=== PATIENT | male | born 1940 | race Caucasian/White ===

== ENCOUNTER → 2016-12-14 | Outpatient (CLI) | payer OTHER, MEDICARE ==
[~2016-12-14] MED LIST: CRD4 PO; FENO130C2 PO; LAXATIVE; METO50TA7 PO; PANT40TA PO; SIMV10TA2; STOOL SOFTNER
[2016-12-14 14:36] LABS: COMPLETE YES; EOS % 3.3 %; HEMATOCRIT 43.9 % (42-52); IG% 0.2 %; LYMPH % 27.3 %; LYMPH ABS # 1.48 K/uL (1.2-3.4); MEAN CELL VOLUME 87.6 fL (80-100); MEAN CORPUSCULAR HEMOGLOBIN 29.3 pg (25-34); MEAN CORPUSCULAR HGB CONC 33.5 g/dl (32-36); MEAN PLATELET VOLUME 12.9 fL (7.4-10.4); MONO % 11.4 %; NEUT % 57.8 %; PLATELET COUNT 165 K/uL (130-400); RED BLOOD COUNT 5.01 M/uL (4.7-6.1); WHITE BLOOD COUNT 5.42 K/uL (4.8-10.8)
[2016-12-14 14:47] LABS: ALT/SGPT 23 U/L (12-78); BLOOD UREA NITROGEN 24 mg/dl (7-18); BUN/CREATININE RATIO 20.3 (10-20); CALCIUM 9.4 mg/dl (8.5-10.1); CARBON DIOXIDE 28 mmol/L (21-32); CHLORIDE 106 mmol/L (98-107); CHOLESTEROL 129 mg/dl (0-200); GLUCOSE 96 mg/dl (70-99); POTASSIUM 4.7 mmol/L (3.5-5.1); SODIUM 142 mmol/L (136-145)
[2016-12-14 14:52] LABS: ALB/GLOB RATIO 1.2 (0.9-2); ALKALINE PHOSPHATASE 41 U/L (45-117); AST/SGOT 18 U/L (15-37); CHOLESTEROL/HDL RATIO 4.3; HDL CHOLESTEROL 30 mg/dl; LDL CHOLESTEROL CALCULATED 60 mg/dl; TRIGLYCERIDES 193 mg/dl (0-150); VERY LOW DENSITY LIPOPROT CALC 39 mg/dl
== END | disposition home or self-care (01) ==
LOC: C.LABSPEC 13:59
PROVIDERS: ATTEND Family Medicine
DX: I10 Essential (primary) hypertension (principal); K21.9 Gastro-esophageal reflux disease without esophagitis; E78.2 Mixed hyperlipidemia

== ENCOUNTER → 2017-11-28 | Outpatient (CLI) | payer OTHER, MEDICARE ==
[2017-11-28 20:04] LABS: INFLUENZA B PCR Neg for Influ B (NEG)
[2017-11-28 20:12] LABS: INFLUENZA A PCR POS for Influ A (NEG)
== END | disposition home or self-care (01) ==
LOC: C.LABSPEC 17:55
PROVIDERS: ATTEND Family Medicine
DX: R05 Cough (principal); R50.9 Fever, unspecified

== ENCOUNTER → 2017-12-23 | Outpatient (CLI) | payer OTHER, MEDICARE ==
[~2017-12-23] MED LIST changes: -METO50TA7 PO; +METO50TA8 PO
[2017-12-23 18:23] LABS: BASO % 0.2 %; BASO ABS # 0.01 K/uL (0-0.2); EOS % 2.8 %; EOS ABS # 0.17 K/uL (0-0.5); HEMATOCRIT 41.6 % (42-52); LYMPH % 27.7 %; LYMPH ABS # 1.68 K/uL (1.2-3.4); MEAN CELL VOLUME 88.3 fL (80-100); MEAN CORPUSCULAR HEMOGLOBIN 29.7 pg (25-34); MEAN CORPUSCULAR HGB CONC 33.7 g/dl (32-36); MEAN PLATELET VOLUME 12.3 fL (7.4-10.4); MONO % 11.2 %; MONO ABS # 0.68 K/uL (0.11-0.59); NEUT % 58.1 %; NEUT ABS # 3.53 K/uL (1.4-6.5); PLATELET COUNT 155 K/uL (130-400); RED CELL DISTRIBUTION WIDTH CV 13.7 % (11.5-14.5); RED CELL DISTRIBUTION WIDTH SD 44.5 fL (36.4-46.3); WHITE BLOOD COUNT 6.07 K/uL (4.8-10.8)
[2017-12-23 18:34] LABS: ALBUMIN 4.5 gm/dl (3.4-5.0); ALT/SGPT 27 U/L (12-78); AST/SGOT 19 U/L (15-37); BLOOD UREA NITROGEN 32 mg/dl (7-18); CALCIUM 9.4 mg/dl (8.5-10.1); CARBON DIOXIDE 28 mmol/L (21-32); CHOLESTEROL 121 mg/dl (0-200); CREATININE 1.35 mg/dl (0.60-1.40); GLUCOSE 87 mg/dl (70-99); SODIUM 137 mmol/L (136-145)
[2017-12-23 18:36] LABS: ALKALINE PHOSPHATASE 35 U/L (45-117); LDL CHOLESTEROL CALCULATED 55 mg/dl; TOTAL PROTEIN 8.2 gm/dl (6.4-8.2)
== END | disposition home or self-care (01) ==
LOC: C.LABSPEC 17:45
PROVIDERS: ATTEND Family Medicine
DX: I10 Essential (primary) hypertension (principal); E78.2 Mixed hyperlipidemia

== ENCOUNTER → 2018-06-30 | Outpatient (CLI) | payer OTHER, MEDICARE ==
[2018-06-30 18:20] LABS: BASO % 0.2 %; BASO ABS # 0.01 K/uL (0-0.2); EOS % 1.8 %; EOS ABS # 0.11 K/uL (0-0.5); HEMATOCRIT 44.2 % (42-52); HEMOGLOBIN 14.3 g/dL (14.0-18.0); IG# 0.01 K/uL (0.00-0.02); LYMPH % 28.3 %; LYMPH ABS # 1.76 K/uL (1.2-3.4); MEAN CELL VOLUME 87.2 fL (80-100); MEAN CORPUSCULAR HEMOGLOBIN 28.2 pg (25-34); MEAN CORPUSCULAR HGB CONC 32.4 g/dl (32-36); MONO % 10.4 %; MONO ABS # 0.65 K/uL (0.11-0.59); NEUT % 59.1 %; NEUT ABS # 3.69 K/uL (1.4-6.5); PLATELET COUNT 180 K/uL (130-400); RED CELL DISTRIBUTION WIDTH CV 13.8 % (11.5-14.5); RED CELL DISTRIBUTION WIDTH SD 43.3 fL (36.4-46.3); WHITE BLOOD COUNT 6.23 K/uL (4.8-10.8)
[2018-06-30 18:46] LABS: ALBUMIN 4.3 gm/dl (3.4-5.0); ALKALINE PHOSPHATASE 43 U/L (45-117); ALT/SGPT 25 U/L (12-78); AST/SGOT 20 U/L (15-37); BLOOD UREA NITROGEN 25 mg/dl (7-18); CALCIUM 8.9 mg/dl (8.5-10.1); CARBON DIOXIDE 25 mmol/L (21-32); CHOLESTEROL 122 mg/dl (0-200); CREATININE 1.19 mg/dl (0.60-1.40); GLUCOSE 98 mg/dl (70-99); LDL CHOLESTEROL CALCULATED 41 mg/dl; POTASSIUM 4.6 mmol/L (3.5-5.1); SODIUM 139 mmol/L (136-145); TOTAL PROTEIN 8.1 gm/dl (6.4-8.2)
== END | disposition home or self-care (01) ==
LOC: C.LABSPEC 17:45
PROVIDERS: ATTEND Family Medicine
DX: I10 Essential (primary) hypertension (principal); E78.2 Mixed hyperlipidemia

== ENCOUNTER 2019-02-03 07:21 | Inpatient (IN) ==
--- NOTE | 2019-01-22 07:39 | Anesthesiology Consultation ---
Date of Service January 22, 2019 Assessment & Plan (1) Encounter for pre-operative examination: Chart Review Chart Review: Acceptable Risk for Surgery and Patient NOT seen in Pre Admission Testing Consults Requested none History Surgery Operation Date: 02/03/19 13:05 Proposed Procedures p Transurethral Resection Prostate - Adi Hester MD Height/Weight Height: 5 ft 10 in Weight: 88.4 kg Allergies Allergy/AdvReac Type Severity Reaction Status Date / Time No Known Allergies Allergy Unknown Verified 01/21/19 12:14 Medications Home Medications Medication Instructions Recorded Confirmed Last Taken buspirone 5 mg PO BID 11/17/18 01/21/19 12/16/18 citalopram [Celexa] 10 mg PO QAM 11/17/18 01/21/19 12/16/18 fenofibrate 160 mg PO QAM 11/17/18 01/21/19 12/16/18 finasteride [Proscar] 5 mg PO QPM 11/17/18 01/21/19 12/15/18 metoprolol tartrate 50 mg PO BID 11/17/18 01/21/19 12/16/18 omeprazole 40 mg PO QAM 11/17/18 01/21/19 12/16/18 Past Medical History Medical History Hypertension (Chronic) Anxiety and depression Cardiac murmur FROM CHILDHOOD History of infection 25 YR AGO-DRANK WATER FROM [place], GOT SICK- WAS TOLD HAD HEPATITIS OR MONONUCLEOSIS Stomach burning TAKES OMEPRAZOLE/MYLANTA Past Family History Family History Father Heart attack Past Surgical History Surgical History Hx laparoscopic cholecystectomy 12/11/18 DR. RAZA, [facility] History of appendectomy History of cardiac catheterization 6-8 MON AGO/"DIDN'T FEEL GOOD, CHEST BURNY" - NO STENTS/20% CLOGGED ARTERY History of colonoscopy History of endoscopy History of hernia repair History of surgery on extremity LEFT LEG/PIN IN Social History Smoking Status: Former smoker tobacco type: cigarettes Smoking cigarettes per day: HX OF USE, QUIT IN S, AVERAGE 1PPD Do You Dip or Chew Tobacco: No Hx Alcohol Use: Yes Alcohol type: beer alcohol intake frequency: holidays/special occasions only Hx Substance Use: No substance use type: does not use Exercise / Class Metabolic Activity II 4-5 Yardwork/Stairs/Walk up hill Testing Electrocardiogram Date: 12/16/18 Findings: + NSR @ (85 bpm) possible LAE LVH with repolarization abnormality prolonged QT Echocardiogram Date: 05/10/17 EF: 61% There is isolated basal septal hypertrophy with maximal thickness of 1.5cm. Elevated LVOT velocity of 1.9m/sec with a mean pressure gradient of 9mmHg and a peak pressure gradient of 15mmHg at rest. No change in velocity noted with Valsalva. The mitral valve chordae are redundant with chordal systolic anterior motion. Cardiac Catheterization Date: 03/14/18 Mild, nonobstructive 3 vessel CAD. Laboratory Results Laboratory Tests 12/16/18 01/08/19 01/08/19 14:10 10:40 10:40 WBC 7.58 Hgb 13.4 L Plt Count 185 PT 12.1 H INR 1.2 H APTT 25.7 Sodium 137 Potassium 4.4 Chloride 104 Carbon Dioxide 28 BUN 27 H Creatinine 1.11 Glucose 122 H
[~2019-02-03 07:21] MED LIST changes: -CRD4 PO; -FENO130C2 PO; +GENTAMICIN SULFATE 160 MG in DEXTROSE 5% 100 ML IV ONE; -LAXATIVE; +LR 15ML/HR IV SCH; -METO50TA8 PO; -PANT40TA PO; -SIMV10TA2; -STOOL SOFTNER
[2019-02-03] MEDS ORDERED: LABETALOL HCL IV 5 MG/ML 20ML IV PRN (08:43)
[2019-02-03] MEDS ORDERED: fentaNYL citrate 100 MCG/2 ML VIAL IV PRN (08:43)
[2019-02-03] MEDS ORDERED: ATROPINE SULFATE 0.1 MG/ML 10ML SYR IV PRN (08:43)
[2019-02-03] MEDS ORDERED: ONDANSETRON INJ 2 MG/ML 2 ML VIAL IV PRN ×2 (08:43→13:03)
[2019-02-03] MEDS ORDERED: KETOROLAC 30 MG/ML VIAL IV PRN (08:43)
[2019-02-03] MEDS ORDERED: fentaNYL citrate 100 MCG/2 ML VIAL ONE ×2 (09:01→10:08)
--- NOTE | 2019-02-03 09:27 | Post Operative Brief Note ---
Immediate Post Op Note v1 Date of Surgery February 03, 2019 Pre & Post Diagnosis Operation Date: 02/03/19 08:35 <No data on this case meets the specified criteria> Procedure Operation Date: 02/03/19 08:35 <No data on this case meets the specified criteria> Surgeon Adi Hester MD
--- NOTE | 2019-02-03 09:27 | History & Physical Bridge Note ---
Date of Service February 03, 2019 History & Physical Bridge Note I have examined the patient, reviewed the History & Physical and in the interval since the performance of the History & Physical I have noted the following changes of clinical significance: no changes noted
[2019-02-03] MEDS ORDERED: LIDOCAINE HCL 2% 2 ML VIAL/AMP(20MG/ML) INFIL ONE (10:08)
[2019-02-03] MEDS ORDERED: PROPOFOL IV EMULSION 10 MG/ML 20 ML VIAL IV ONE (10:08)
[2019-02-03] MEDS ORDERED: ONDANSETRON INJ 2 MG/ML 2 ML VIAL ONE (10:08)
--- NOTE | 2019-02-03 11:41 | Post Operative Brief Note ---
Immediate Post Op Note v1 Date of Surgery February 03, 2019 Pre & Post Diagnosis Operation Date: 02/03/19 08:35 Pre-Op Diagnosis: Benign Localized Hyperplasia of Prostate Post-Op Diagnosis: Benign Localized Hyperplasia of Prostate Procedure Operation Date: 02/03/19 08:35 Actual Procedures p Transurethral Resection Prostate(Not Applicable) - Adi Hester MD Surgeon Adi Hester MD Economic Specialist none Estimated Blood Loss 100 Findings Consistent with Post-Op Diagnosis Drains Bruce Catheter ([address] catheter)
--- NOTE | 2019-02-03 12:27 | Anesthesiology Progress Note ---
Date of Service February 03, 2019 Anesthesia Post Procedure Vital Signs Vital Signs: Temp Pulse Pulse Resp BP Pulse Ox 02/03/19 12:15 92 H 18 157/75 H 92 02/03/19 12:05 87 19 157/71 H 94 02/03/19 11:55 85 18 153/74 H 99 02/03/19 11:48 36.4 C L 83 24 140/67 95 02/03/19 07:42 36.6 C 84 18 146/68 H 97 Notes Mental Status: alert / awake / arousable Patient Amnestic to Procedure: Yes Nausea / Vomiting: adequately controlled Pain: adequately controlled Airway Patency, RR, SpO2: stable & adequate BP & HR: stable & adequate Hydration State: stable & adequate Anesthetic Complications: no major complications apparent
[2019-02-03] MEDS ORDERED: MoRPHine SULFATE 4 MG/ML 1 ML CARP\\VIAL IV PRN (13:03)
[2019-02-03] MEDS ORDERED: OXYCODONE HCL IR 5 MG TAB (IMMEDIATE RELEASE) PO PRN (13:03)
[2019-02-03] MEDS ORDERED: ACETAMINOPHEN 325 MG TAB PO PRN (13:03)
[2019-02-03] MEDS ORDERED: BELLADONNA/OPIUM SUPP 60 MG SUPP PR ONE (13:30)
[2019-02-03] MEDS ORDERED: GENTAMICIN CONSULT ACTIVE PRN (13:35)
[2019-02-03] MEDS: SODIUM CHLORIDE 0.45 % 1,000 ML IV SCH (14:01)
[2019-02-03] MEDS: FENOFIBRATE~ORDER AWAITING ACTION SCH ×2 (14:15→18:01)
[2019-02-03 15:19] LABS: Eosinophils % (auto) 1.2 %; Hematocrit (blood only) 42.6 % (42-52); Hemoglobin 14.1 g/dL (14.0-18.0); Immature Granulocytes # (auto) 0.03 K/uL (0.00-0.02); Immature Granulocytes % (auto) 0.4 %; Lymphocytes # (auto) 1.55 K/uL (1.2-3.4); Lymphocytes % (auto) 19.3 %; Mean Corpuscular Hgb Conc 33.1 g/dL (32-36); Mean Corpuscular Volume 87.7 fL (80-100); Mean Platelet Volume 10.7 fL (7.4-10.4); Monocytes # (auto) 0.65 K/uL (0.11-0.59); Monocytes % (auto) 8.1 %; Neutrophils # (auto) 5.69 K/uL (1.4-6.5); Platelet Count 138 K/uL (130-400); RDW Coefficient of Variation 14.7 % (11.5-14.5); RDW Standard Deviation 47.4 fL (36.4-46.3); Red Blood Count 4.86 M/uL (4.7-6.1); White Blood Count 8.02 K/uL (4.8-10.8)
[2019-02-03 15:45] LABS: BUN Creatinine Ratio 21.9 (10-20); Est GFR (African American) 86.7; Est GFR (Non-African American) 74.8; Potassium 4.1 mmol/L (3.5-5.1)
--- NOTE | 2019-02-03 15:46 | Operative Report ---
DATE OF OPERATION: 02/03/2019 PREOPERATIVE DIAGNOSES: Acute urinary retention and benign prostatic hypertrophy. POSTOPERATIVE DIAGNOSES: Acute urinary retention and benign prostatic hypertrophy. PROCEDURE PERFORMED: TURP. SURGEON: Adi Hester MD ANESTHESIA: General. INDICATIONS: The patient is an 79-year-old male who had a cholecystectomy in December and was in retention subsequent to this. The patient failed multiple voiding trials and presents now for a TURP. DESCRIPTION OF THE PROCEDURE: The patient was taken to the operating room where general anesthesia was administered. He had Venodyne stockings placed. He had been on preoperative antibiotics and was given gentamicin. He was placed in dorsal lithotomy position and prepped and draped in the usual sterile fashion. A 21-Congolese cystoscope was passed per urethra and the patient had a clearly obstructing prostate. The ureteral orifices were somewhat near the prostate and then he had this removed and a 26-Congolese resectoscope was placed and the patient had a TUR commence with the button, bipolar TURP apparatus. I started on the right side and there was some moderate amount of bleeding with the button procedure, so I did not feel comfortable doing a TUR. I did create a channel first on by fulgurate as much as I could in the right and then on the left and after an hour and 15 minutes, I did have a fairly reasonable channel from the verumontanum, and tried to not cut beyond into the bladder. There was one area of bleeding just near the veru anteriorly that I fulgurated multiple times that it started to bleed, and finally did seem to stop, but I did not want to be too aggressive in my fulguration because I thought it might be too near the sphincter. The rest of the prostate I fulgurated did not see any other areas that were bleeding at the end of the procedure. I had the scope in at the veru looking it and I did not see a lot of bleeding. It was clearly a channel from when you looked into the veru into the bladder, although there was still some tissue that could have been resected. I did place a 22-Congolese 2-way Bruce catheter with 30 mL balloon, irrigated, the urine was pink color and then the patient was transferred to the recovery room in stable condition. Estimated blood loss was about 200 mL. I attest to the content of the Intraoperative Record and any orders documented therein. Any exception s are noted below.
--- NOTE | 2019-02-03 16:52 | Pharmacy Report ---
Pharmacy Abx Dose Short Note - Date of Service February 03, 2019 - Assessment & Plan Assessment 79 year old M receiving gentamicin for treatment of UTI Day # 1 of antimicrobial therapy. Previous urine cx 01/13 positive for PA/serratia Plan Gentamicin: * Patient received preop dose of gentamicin 160 mg this morning (~2mg/kg dose) * Patient candidate for extended interval monitoring / this dosing is preferred * Will start gentamicin 540 mg Q24 hrs for this evening (~7 mg/kg based upon Adjusted BW) * Will start dosing about ~10 hours after preop dosing - will order random level 6-14 hours after dose given Pharmacy will continue to follow and will adjust dose/frequency as necessary. Thank you.
[2019-02-03] MEDS ORDERED: DEXTROSE 5% IV SCH (20:00)
[2019-02-03] MEDS ORDERED: GENTAMICIN SULFATE 80 MG in DEXTROSE 5% 100 ML IV SCH (20:00)
[2019-02-03] MEDS ORDERED: GENTAMICIN SULFATE IV SCH (20:00)
[2019-02-03] MEDS: DOCUSATE SODIUM 100 MG CAP PO SCH (20:25)
[2019-02-03] MEDS: CIPROFLOXACIN 500 MG TAB PO SCH (20:25)
[2019-02-03] MEDS: FAMOTIDINE 20 MG in SYRINGE 3 ML IV SCH (20:28)
[2019-02-03] MEDS ORDERED: FINASTERIDE 5 MG TAB PO SCH (21:00)
[2019-02-03] MEDS: METOPROLOL TARTRATE 50 MG TAB PO SCH (21:11)
[2019-02-04] MEDS: SODIUM CHLORIDE 0.45 % 1,000 ML IV SCH (00:23)
[2019-02-04] MEDS: FENOFIBRATE~ORDER AWAITING ACTION SCH ×2 (00:25→07:16)
[2019-02-04 04:28] LABS: Eosinophils # (auto) 0.15 K/uL (0-0.5); Eosinophils % (auto) 1.6 %; Hematocrit (blood only) 37.9 % (42-52); Hemoglobin 12.7 g/dL (14.0-18.0); Immature Granulocytes # (auto) 0.02 K/uL (0.00-0.02); Immature Granulocytes % (auto) 0.2 %; Lymphocytes # (auto) 0.74 K/uL (1.2-3.4); Lymphocytes % (auto) 8.1 %; Mean Corpuscular Hgb Conc 33.5 g/dL (32-36); Mean Corpuscular Volume 86.9 fL (80-100); Monocytes # (auto) 1.08 K/uL (0.11-0.59); Monocytes % (auto) 11.8 %; Neutrophils % (auto) 78.3 %; Platelet Count 136 K/uL (130-400); RDW Coefficient of Variation 14.6 % (11.5-14.5); RDW Standard Deviation 46.5 fL (36.4-46.3); Red Blood Count 4.36 M/uL (4.7-6.1); White Blood Count 9.19 K/uL (4.8-10.8)
[2019-02-04 04:45] LABS: BUN Creatinine Ratio 14.6 (10-20); Calcium 8.5 mg/dl (8.5-10.1); Creatinine Clr Calc Pharmacy 46.4 ml/min; Est GFR (African American) 59.9; Est GFR (Non-African American) 51.7; Potassium 4.1 mmol/L (3.5-5.1)
--- NOTE | 2019-02-04 08:30 | Anesthesiology Progress Note ---
Date of Service February 04, 2019 Anesthesia Post Procedure Vital Signs Vital Signs: Temp Pulse Pulse Resp BP BP Pulse Ox 02/04/19 07:52 36.7 C 70 18 110/62 95 02/04/19 04:16 37.5 C 82 16 142/72 H 94 02/03/19 23:00 37.2 C 81 18 146/69 H 92 02/03/19 22:40 85 127/70 02/03/19 20:25 80 169/73 H 02/03/19 19:22 37.3 C 74 19 165/76 H 94 02/03/19 15:45 36.7 C 100 H 18 135/70 94 02/03/19 14:50 37.0 C 84 18 167/78 H 94 02/03/19 13:46 36.6 C 90 18 154/80 H 94 02/03/19 13:15 36.5 C 89 18 164/81 H 97 02/03/19 12:45 36.7 C 94 H 18 165/80 H 96 02/03/19 12:35 93 H 14 158/68 H 97 02/03/19 12:25 36.4 C L 92 H 21 158/76 H 92 02/03/19 12:15 92 H 18 157/75 H 92 02/03/19 12:05 87 19 157/71 H 94 02/03/19 11:55 85 18 153/74 H 99 02/03/19 11:48 36.4 C L 83 24 140/67 95 Notes Mental Status: alert / awake / arousable and participated in evaluation Patient Amnestic to Procedure: Yes Nausea / Vomiting: adequately controlled Pain: adequately controlled Airway Patency, RR, SpO2: stable & adequate BP & HR: stable & adequate Hydration State: stable & adequate Anesthetic Complications: no major complications apparent
[2019-02-04] MEDS: DOCUSATE SODIUM 100 MG CAP PO SCH (08:47)
[2019-02-04] MEDS: METOPROLOL TARTRATE 50 MG TAB PO SCH (08:47)
[2019-02-04] MEDS: FAMOTIDINE 20 MG in SYRINGE 3 ML IV SCH (08:47)
[2019-02-04] MEDS: CIPROFLOXACIN 500 MG TAB PO SCH (08:47)
[2019-02-04] MEDS ORDERED: PANTOprazole 40 MG TAB PO SCH (09:00)
[2019-02-04] MEDS ORDERED: CITALOPRAM 20 MG TAB PO SCH (09:00)
--- NOTE | 2019-02-04 10:11 | Urology Progress Note ---
Date of Service February 04, 2019 Assessment & Plan (1) Urine retention: 79yo POD #1 s/p TURP Doing very well this AM. Hand irrigation x2 last evening, clear since ~ midnight. Dr. Hester in this am, placed oliver on traction for short period of time. Now draining to gravity. If continues to do well and oliver remains clear around lunchtime, okay to d/c home with catheter intact. If having recurrenc of hematuria, will possibly entertain keeping another night. Will continue to monitor. Pt anxious to go home as soon as we will allow. Subjective 79yo M POD #1 s/p TURP. Pt doing well this AM. Did require hand irrigation for small clots twice overnight, lastly around 11pm. Urine now clear in tubing. patient denies significant pain or discomfort. Tolerating PO diet well. Had ambulated in halls multiple times last night, had a difficult time sleeping but relates this to change in environment. Son and at bedside. Dr. Hester also in to evaluate patient this AM. Review of Systems All systems reviewed & are unremarkable except as noted in HPI & below Physical Exam Vital Signs (Past 24 Hours): Last Vital Signs Temp 36.7 C 02/04/19 07:52 Pulse 70 02/04/19 07:52 Resp 18 02/04/19 07:52 BP 110/62 02/04/19 07:52 Pulse Ox 95 02/04/19 07:52 Physical Exam: A&Ox3 RRR abd soft, notender Oliver catheter intact, draining clear yellow with scant tiny flecks of blood. Results & Data Laboratory Results Laboratory Results - last 48 hr 02/03/19 02/03/19 02/03/19 14:54 14:54 14:54 WBC 8.02 RBC 4.86 Hgb 14.1 Hct 42.6 MCV 87.7 MCH 29.0 MCHC 33.1 RDW Std Deviation 47.4 H RDW Coeff of Mary 14.7 H Plt Count 138 MPV 10.7 H Immature Gran % (Auto) 0.4 Neut % (Auto) 71.0 Lymph % (Auto) 19.3 [place] % (Auto) 8.1 Eos % (Auto) 1.2 Baso % (Auto) 0.0 Immature Gran # (Auto) 0.03 H Neut # (Auto) 5.69 Lymph # (Auto) 1.55 [place] # (Auto) 0.65 H Eos # (Auto) 0.10 Baso # (Auto) 0.00 Sodium 140 Potassium 4.1 Chloride 107 Carbon Dioxide 27 Anion Gap 6.0 BUN 21 H Creatinine 0.95 Cancelled Est Cr Clr Drug Dosing 63.0 Cancelled Est GFR ( Amer) 86.7 Cancelled Est GFR (Non-Af Amer) 74.8 Cancelled BUN/Creatinine Ratio 21.9 H Glucose 86 Calcium 9.0 Random Gentamicin 02/04/19 02/04/19 02/04/19 03:58 03:58 04:01 WBC 9.19 RBC 4.36 L Hgb 12.7 L Hct 37.9 L MCV 86.9 MCH 29.1 MCHC 33.5 RDW Std Deviation 46.5 H RDW Coeff of Mary 14.6 H Plt Count 136 MPV 11.0 H Immature Gran % (Auto) 0.2 Neut % (Auto) 78.3 Lymph % (Auto) 8.1 [place] % (Auto) 11.8 Eos % (Auto) 1.6 Baso % (Auto) 0.0 Immature Gran # (Auto) 0.02 Neut # (Auto) 7.20 H Lymph # (Auto) 0.74 L [place] # (Auto) 1.08 H Eos # (Auto) 0.15 Baso # (Auto) 0.00 Sodium 136 Potassium 4.1 Chloride 102 Carbon Dioxide 29 Anion Gap 5.0 BUN 19 H Creatinine 1.29 D Est Cr Clr Drug Dosing 46.4 Est GFR ( Amer) 59.9 Est GFR (Non-Af Amer) 51.7 BUN/Creatinine Ratio 14.6 Glucose 114 H Calcium 8.5 Random Gentamicin 7.30
--- NOTE | 2019-02-05 12:32 | Coding Query ---
CODING QUERY To promote full compliance with coding requirements relating to patient care, provider participation is requested in all cases of brass plater uncertainty. Please assist us with the question(s) below: Coding Question(s): 1. There is documentation of Acute Urinary Retention and Benign Prostatic Hypertrophy with the documentation that the patient had a Cholecystectomy in December and was in retention subsequent to this. Please clarify below, in your clinical opinion, regarding the acute urinary retention. ( ) Acute Urinary Retention is a Postoperative Complication resulting from the recent Cholecystectomy procedure ( ) Acute Urinary Retention is due to the BPH ( y ) Acute Urinary Retention is due to Both BPH and Complication resulting from the recent Cholecystectomy procedure ( ) Acute Urinary Retention is due to Other: Please Specify 2. The Operative Report describes bleeding with the button procedure, and that you did not feel comfortable doing a TUR and that there was one area of bleeding just near the veru anteriorly that was fulgurated multiple times that it started to bleed, and finally did stop. Please clarify below, in your clinical opinion, regarding the bleeding described in the Operative Report. ( ) Bleeding was an Intra-Operative Complication ( y ) Bleeding was Not an Intra-Operative Complication Physician's Response(s): Thank you Elizabet Sharp Principal Diagnosis: "that condition established after study, to be chiefly responsible for occasioning the admission of the patient to the hospital for care." Co-Existing Principal Diagnosis: "when two or more diagnoses equally meet the criteria for principal diagnosis as determined by the circumstances of admission, diagnostic work up, and/or therapy provided, and the Alphabetic Index, Tabular List, or another coding guideline does not provide sequencing direction, any one of the diagnoses may be sequenced first." "When the physician has documented what appears to be a current diagnosis in the body of the record, but has not included the diagnosis in the final diagnostic statement, the physician should be asked whether the diagnosis should be added." (Source [facility]oding [facility] 2 QTR90. p3-4) HECTOR
--- NOTE | 2019-02-25 09:25 | Discharge Summary ---
REASON FOR ADMISSION: BPH, scheduled for TURP electively. HOSPITAL COURSE: The patient was admitted to the hospital for TURP as he had been in retention and failed multiple voiding trials after having surgery for hernia repair. The patient was taken to the cysto suite and a TURP was performed without complication. Towards the end of the procedure, there was some bleeding towards the apex of the prostate which I was able to control, but was difficult to control and it was not clear whether there was a vein or whether retracted. However, postoperatively the patient initially did well for several hours, but had slightly more hematuria than I was comfortable with. I came in and saw him in the evening of that admission and placed the catheter under traction and then the next morning when I arrived, the urine was pink and clearing. I released traction and the patient remained with clear urine for the rest of the morning and was discharged to home in stable condition with oral antibiotics.
== END 2019-02-04 13:45 | disposition home or self-care (01) | DRG 666 ==
LOC: ASU 07:21 → 3N 11:56